=== PATIENT | male | born 1980 | race Caucasian/White ===

== ENCOUNTER 2017-11-04 21:40 | Emergency (ER) | payer OTHER ==
[~2017-11-04] VITALS: Ht 195.6 cm; Wt 113.4 kg
--- OUTSIDE RECORDS SUMMARY | 2017-11-04 22:02 | External Medical Summary Rpt | CCD ---
Author Author , ESSENCE ROSADO Address Unknown Phone [email or web address] Purpose Continuity of Care Document - through 2016
--- OUTSIDE RECORDS SUMMARY | 2017-11-04 22:02 | External Medical Summary Rpt | CCD ---
Author Author , ESSENCE ROSADO Address Unknown Phone [email or web address] Purpose Continuity of Care Document - through 2016
--- OUTSIDE RECORDS SUMMARY | 2017-11-04 22:02 | External Medical Summary Rpt | CCD ---
Author Author [employer] Organization [employer] Address Unknown Phone Unavailable Purpose Continuity of Care Document - through 2016
--- OUTSIDE RECORDS SUMMARY | 2017-11-04 22:03 | External Medical Summary Rpt | CCD ---
Demographics Preferred Language Slovak Marital Status Unknown Buddhism Affiliation Unknown Race Unknown Ethnic Group Unknown Author Author , ASHLEE ROSADO Address Unknown Phone Immunization Unable to retrieve immunization data due to connection failure with Immunization Registry. Please try again later.
--- OUTSIDE RECORDS SUMMARY | 2017-11-04 22:03 | External Medical Summary Rpt | CCD ---
Demographics Preferred Language Albanian Marital Status Unknown Congregation Affiliation Unknown Race Unknown Ethnic Group Unknown Author Author , ASHLEE ROSADO Address Unknown Phone Immunization Unable to retrieve immunization data due to connection failure with Immunization Registry. Please try again later.
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
[2017-11-04 23:19] VITALS: BP 159/90
== END 2017-11-04 23:19 | disposition home or self-care (01) ==
LOC: ER 21:40
DX: S05.01XA Injury of conjunctiva and corneal abrasion without foreign body, right eye, initial encounter (principal); W22.8XXA Striking against or struck by other objects, initial encounter; Y92.89 Other specified places as the place of occurrence of the external cause